=== PATIENT | male | born 1995 | race Caucasian/White ===

== ENCOUNTER 2022-11-04 16:46 | Inpatient (IN) | payer OTHER ==
[~2022-11-04] VITALS: Ht 188 cm; Wt 95.5 kg
[2022-11-04] MEDS ORDERED: SODIUM CHLORIDE 0.9% 1,000 ML IV ONE (17:30)
[2022-11-04 17:57] LABS: BASOPHILS % (AUTO) 0.2 % (0.0-2.0); EOSINOPHILS % (AUTO) 0.5 % (1.0-6.0); HEMATOCRIT 46.8 % (41-53); HEMOGLOBIN 15.7 g/dL (13.5-17.5); LYMPHOCYTES % (AUTO) 17.2 % (22.0-44.0); MEAN CORPUSCULAR HEMOGLOBIN 29.6 pg (26.0-34.0); MEAN CORPUSCULAR HGB CONC 33.6 G/dL (31.0-37.0); MEAN CORPUSCULAR VOLUME 88 fL (80-100); MONOCYTES # (AUTO) 0.5 K/uL (0.1-1.0); NEUTROPHILS # (AUTO) 4.2 K/uL (1.8-7.7); NEUTROPHILS % (AUTO) 73.1 % (40.0-70.0); PLATELET COUNT (AUTO) 273 K/uL (150-450); RED CELL DISTRIBUTION WIDTH 12.9 % (11.5-14.5)
[2022-11-04 18:04] LABS: ANION GAP 7 mmol/L (8-16); CALCIUM, TOTAL 9.3 mg/dL (8.8-10.5); CARBON DIOXIDE 27 mmol/L (22-29); CHLORIDE 105 mmol/L (98-107); CREATININE 0.94 mg/dL (0.60-1.30); GLOMERULAR FILTR. RATE CALC > 60 mL/min (>60); GLUCOSE,RANDOM 119 mg/dL (70-110); POTASSIUM 4.1 mmol/L (3.5-5.1); SODIUM SERUM 139 mmol/L (136-145)
[2022-11-04] MEDS ORDERED: METOCLOPRAMIDE HCL 5 MG/ML 2 ML VIAL IVP ONE (18:30)
[2022-11-04] MEDS ORDERED: MAGNESIUM HYDROXIDE SUSPENSION 30 ML UDCUP PO PRN (21:15)
[2022-11-04] MEDS ORDERED: HydrOXYzine PAMOATE 50 MG CAPSULE PO PRN ×2 (21:15)
[2022-11-04] MEDS ORDERED: DICYCLOMINE HCL 10 MG CAPSULE PO PRN (21:15)
[2022-11-04] MEDS ORDERED: PROMETHAZINE HCL 25 MG TABLET PO PRN (21:15)
[2022-11-04] MEDS ORDERED: LOPERAMIDE HCL 2 MG/15 ML SUSPENSION UDCUP PO PRN (21:15)
[2022-11-04] MEDS ORDERED: BACLOFEN 10 MG TABLET PO PRN (21:15)
[2022-11-04] MEDS ORDERED: TraZODone HCL 50 MG TABLET PO PRN (21:15)
[2022-11-04] MEDS ORDERED: IBUPROFEN 600 MG TABLET PO PRN (21:15)
[2022-11-04] MEDS ORDERED: BISACODYL 10 MG RECTAL RECTAL SUPPOSITORY PR PRN (21:15)
[2022-11-04] MEDS ORDERED: LORazepam 1 MG TABLET PO PRN (21:15)
[2022-11-04] MEDS ORDERED: CloNIDine HCL 0.1 MG TABLET PO PRN ×2 (21:15)
[2022-11-04] MEDS ORDERED: ACETAMINOPHEN 325 MG TABLET PO PRN ×2 (21:15)
[2022-11-04] MEDS ORDERED: ALBUTEROL SULFATE 2.5 MG/0.5 ML NEB SOLUTION NEB PRN (21:15)
[2022-11-04] MEDS ORDERED: MAG HYDROX/AL HYDROX/SIMETH ES 30 ML SUSPENSION UDCUP PO PRN ×2 (21:15)
[2022-11-04] MEDS ORDERED: IPRATROPIUM BROMIDE 0.5 MG/2.5 ML NEB SOLUTION NEB PRN (21:15)
[2022-11-04] MEDS: CloNIDine HCL 0.1 MG TABLET PO SCH (21:52)
[2022-11-04] MEDS: SODIUM CHLORIDE 0.45% 1,000 ML IV SCH (21:52)
[2022-11-04] MEDS: HEPARIN SODIUM,PORCINE 5,000 UNITS/ML VIAL SQ SCH (23:46)
[2022-11-05] MEDS: ZOLPIDEM TARTRATE 5 MG TABLET PO PRN ×2 (04:33→20:08)
[2022-11-05] MEDS: ONDANSETRON HCL 4 MG/2 ML VIAL IVP PRN ×2 (04:40→17:49)
[2022-11-05] MEDS: CloNIDine HCL 0.1 MG TABLET PO SCH ×4 (06:06→22:00)
[2022-11-05 08:05] VITALS: BP 123/68
[2022-11-05] MEDS: PANTOPRAZOLE SODIUM 40 MG/VIAL IVP SCH (08:36)
[2022-11-05] MEDS: SODIUM CHLORIDE 0.45% 1,000 ML IV SCH ×2 (08:36→23:22)
[2022-11-05] MEDS: HEPARIN SODIUM,PORCINE 5,000 UNITS/ML VIAL SQ SCH ×2 (08:36→16:53)
[2022-11-05 09:01] LABS: APPEARANCE,URINE CLEAR (CLEAR); BILIRUBIN,URINE NEGATIVE (NEGATIVE); GLUCOSE, URINE (UA) NEGATIVE (NEGATIVE); KETONES,URINE NEGATIVE (NEGATIVE); LEUKOCYTE ESTERASE ,URINE NEGATIVE (NEGATIVE); NITRATE,URINE NEGATIVE (NEGATIVE); OCCULT BLOOD,URINE NEGATIVE (NEGATIVE); PROTEIN,URINE NEGATIVE (NEGATIVE); UROBILINOGEN,URINE <=1.0 mg/dL (<=1.0)
[2022-11-05 09:09] LABS: AMPHET/METH SCREEN,URINE POSITIVE (NEGATIVE); BARBITURATE SCREEN, URINE NEGATIVE (NEGATIVE); BENZODIAZEPINES SCREEN,URINE NEGATIVE (NEGATIVE); CANNABINOID SCREEN,URINE NEGATIVE (NEGATIVE); COCAINE SCREEN,URINE NEGATIVE (NEGATIVE); METHADONE SCREEN, URINE NEGATIVE (NEGATIVE); PHENCYCLIDINE SCREEN,URINE POSITIVE (NEGATIVE)
[2022-11-05 09:10] LABS: OPIATE SCREEN,URINE NEGATIVE (NEGATIVE)
[2022-11-05] MEDS: IBUPROFEN 600 MG TABLET PO PRN (11:59)
[2022-11-05 15:39] VITALS: BP 132/77
[2022-11-05 19:15] VITALS: BP 132/60
[2022-11-06] MEDS: IBUPROFEN 600 MG TABLET PO PRN (00:56)
[2022-11-06 04:05] VITALS: BP 114/60
[2022-11-06] MEDS: CloNIDine HCL 0.1 MG TABLET PO SCH (06:00)
[2022-11-06 07:29] VITALS: BP 119/67
[2022-11-06] MEDS: HEPARIN SODIUM,PORCINE 5,000 UNITS/ML VIAL SQ SCH ×2 (08:00)
[2022-11-06] MEDS: PANTOPRAZOLE SODIUM 40 MG/VIAL IVP SCH (08:50)
== END 2022-11-06 14:13 | DRG 897 ==
LOC: EMS 16:50 → AHU 18:31 → 6S 11-05 06:38 → 6N 11-05 10:55
PROVIDERS: ADMIT Hospitalist; ATTEND Hospitalist
DX: F11.10 Opioid abuse, uncomplicated (principal); F17.200 Nicotine dependence, unspecified, uncomplicated; F10.90 Alcohol use, unspecified, uncomplicated
CPT/HCPCS: 80048; 80307; 81003; 85025; 99285; C9113; G0378; G0480; J1644; J2405; J2765; J7030

== ENCOUNTER 2024-03-28 13:50 | Inpatient (IN) | payer OTHER ==
[~2024-03-28] VITALS: Ht 188 cm; Wt 95.0 kg
[2024-03-28 14:40] LABS: BASOPHILS % (AUTO) 0.4 % (0.0-2.0); EOSINOPHILS % (AUTO) 1.1 % (1.0-6.0); HEMATOCRIT 47.7 % (41-53); HEMOGLOBIN 15.6 g/dL (13.5-17.5); LYMPHOCYTES # (AUTO) 1.3 K/uL (1.0-4.8); LYMPHOCYTES % (AUTO) 15.7 % (22.0-44.0); MEAN CORPUSCULAR HEMOGLOBIN 29.1 pg (26.0-34.0); MEAN CORPUSCULAR HGB CONC 32.7 G/dL (31.0-37.0); MEAN CORPUSCULAR VOLUME 89 fL (80-100); MONOCYTES # (AUTO) 0.9 K/uL (0.1-1.0); MONOCYTES % (AUTO) 10.8 % (2.0-9.0); NEUTROPHILS # (AUTO) 6.2 K/uL (1.8-7.7); PLATELET COUNT (AUTO) 208 K/uL (150-450); RED BLOOD CELL COUNT(AUTO) 5.37 MIL/uL (4.50-5.90); WHITE BLOOD COUNT (AUTO) 8.6 K/uL (4.5-11.0)
[2024-03-28 14:44] LABS: ANION GAP 4 mmol/L (8-16); CALCIUM, TOTAL 8.2 mg/dL (8.8-10.5); CARBON DIOXIDE 33 mmol/L (22-29); CHLORIDE 103 mmol/L (98-107); CREATININE 0.87 mg/dL (0.60-1.30); GLOMERULAR FILTR. RATE CALC > 60 mL/min (>60); GLUCOSE,RANDOM 84 mg/dL (70-110); POTASSIUM 4.8 mmol/L (3.5-5.1); SODIUM SERUM 140 mmol/L (136-145); UREA NITROGEN, BLOOD 17 mg/dL (7-18)
[2024-03-28 14:53] LABS: LACTIC ACID 1.1 mmol/L (0.4-2.0)
[2024-03-28] MEDS: PIPERACILLIN/TAZO 3.375 GM/D5W 50 ML IV ONE (14:54)
[2024-03-28 14:58] LABS: C-REACTIVE PROTEIN QUANT 1.39 mg/dL (0.00-0.30)
[2024-03-28] MEDS: TraMADol HCL 50 MG TABLET PO ONE (14:59)
[2024-03-28] MEDS ORDERED: ONDANSETRON HCL 4 MG/2 ML VIAL IVP PRN (16:00)
[2024-03-28] MEDS: HEPARIN SODIUM,PORCINE 5,000 UNITS/ML VIAL SQ SCH (16:00)
[2024-03-28] MEDS: VANCOMYCIN 1.5 GM/WATER(PEG) 300 ML IV ONE (16:31)
[2024-03-28] MEDS ORDERED: KETOROLAC TROMETHAMINE 15 MG/ML VIAL IVP SCH (18:00)
[2024-03-28] MEDS ORDERED: SODIUM CHLORIDE 0.9% 500 ML IV ONE (18:35)
[2024-03-28] MEDS: CLINDAMYCIN 300 MG/D5% WATER 50 ML IV SCH (18:42)
[2024-03-28] MEDS: KETOROLAC TROMETHAMINE 15 MG/ML VIAL IVP PRN (18:43)
[2024-03-28 19:39] VITALS: BP 113/69; PULSE 70; RESP 19; TEMP 98.9; O2SAT 99
[2024-03-28] MEDS: PIPERACILLIN/TAZO 3.375 GM/D5W 50 ML IV SCH (22:13)
[2024-03-29] MEDS ORDERED: VANCOMYCIN 1.25 GM/WATER(PEG) 250 ML IV SCH
[2024-03-29 05:26] VITALS: BP 129/74; PULSE 63; RESP 18; TEMP 97.8; O2SAT 97
[2024-03-29 07:10] LABS: BASOPHILS % (AUTO) 0.5 % (0.0-2.0); EOSINOPHILS % (AUTO) 1.2 % (1.0-6.0); HEMATOCRIT 43.1 % (41-53); HEMOGLOBIN 14.5 g/dL (13.5-17.5); LYMPHOCYTES # (AUTO) 0.8 K/uL (1.0-4.8); LYMPHOCYTES % (AUTO) 8.4 % (22.0-44.0); MEAN CORPUSCULAR HEMOGLOBIN 29.5 pg (26.0-34.0); MEAN CORPUSCULAR HGB CONC 33.7 G/dL (31.0-37.0); MEAN CORPUSCULAR VOLUME 88 fL (80-100); MONOCYTES % (AUTO) 10.3 % (2.0-9.0); NEUTROPHILS # (AUTO) 7.4 K/uL (1.8-7.7); NEUTROPHILS % (AUTO) 79.6 % (40.0-70.0); PLATELET COUNT (AUTO) 188 K/uL (150-450); RED BLOOD CELL COUNT(AUTO) 4.92 MIL/uL (4.50-5.90); RED CELL DISTRIBUTION WIDTH 12.3 % (11.5-14.5); WHITE BLOOD COUNT (AUTO) 9.4 K/uL (4.5-11.0)
[2024-03-29 07:25] VITALS: BP 105/61; PULSE 69; RESP 18; TEMP 98.6; O2SAT 96
[2024-03-29 07:36] LABS: ANION GAP 7 mmol/L (8-16); CARBON DIOXIDE 26 mmol/L (22-29); CHLORIDE 102 mmol/L (98-107); CREATININE 0.91 mg/dL (0.60-1.30); GLOMERULAR FILTR. RATE CALC > 60 mL/min (>60); GLUCOSE,RANDOM 94 mg/dL (70-110); SODIUM SERUM 135 mmol/L (136-145); UREA NITROGEN, BLOOD 17 mg/dL (7-18)
[2024-03-29 08:10] LABS: CALCIUM, TOTAL 8.2 mg/dL (8.8-10.5)
[2024-03-29] MEDS: LINEZOLID 600 MG/ISO-OSM 300 ML IV SCH (08:29)
[2024-03-29 19:25] VITALS: BP 123/53; PULSE 77; RESP 20; TEMP 99.1; O2SAT 97
[2024-03-30 05:28] VITALS: BP 105/58; PULSE 70; RESP 20; TEMP 98.6; O2SAT 94
[2024-03-30 06:43] LABS: ANION GAP 6 mmol/L (8-16); CALCIUM, TOTAL 8.1 mg/dL (8.8-10.5); CARBON DIOXIDE 29 mmol/L (22-29); CHLORIDE 102 mmol/L (98-107); CREATININE 0.83 mg/dL (0.60-1.30); GLOMERULAR FILTR. RATE CALC > 60 mL/min (>60); GLUCOSE,RANDOM 94 mg/dL (70-110); POTASSIUM 4.4 mmol/L (3.5-5.1); SODIUM SERUM 137 mmol/L (136-145); UREA NITROGEN, BLOOD 15 mg/dL (7-18)
[2024-03-30 07:37] VITALS: BP 106/54; PULSE 68; RESP 18; TEMP 98.5; O2SAT 97
[2024-03-30] MEDS: ACETAMINOPHEN 325 MG TABLET PO PRN (08:00)
[2024-03-30] MEDS ORDERED: ACETAMINOPHEN 500 MG TABLET PO PRN (18:15)
[2024-03-30] MEDS: ACETAMINOPHEN 500 MG TABLET PO SCH (18:34)
[2024-03-30 19:33] VITALS: BP 141/62; PULSE 67; RESP 18; TEMP 98.5; O2SAT 98
[2024-03-30] MEDS: GABAPENTIN 100 MG CAPSULE PO SCH (20:08)
[2024-03-30] MEDS ORDERED: MELATONIN 3 MG TABLET PO PRN (22:45)
[2024-03-31 07:59] VITALS: BP 177/98; PULSE 66; RESP 19; TEMP 98.2; O2SAT 99
[2024-03-31 09:40] LABS: BASOPHILS % (AUTO) 0.4 % (0.0-2.0); EOSINOPHILS % (AUTO) 0.9 % (1.0-6.0); HEMATOCRIT 46.6 % (41-53); HEMOGLOBIN 15.6 g/dL (13.5-17.5); LYMPHOCYTES % (AUTO) 11.6 % (22.0-44.0); MEAN CORPUSCULAR HEMOGLOBIN 29.6 pg (26.0-34.0); MEAN CORPUSCULAR HGB CONC 33.5 G/dL (31.0-37.0); MEAN CORPUSCULAR VOLUME 88 fL (80-100); MONOCYTES # (AUTO) 0.8 K/uL (0.1-1.0); MONOCYTES % (AUTO) 9.2 % (2.0-9.0); NEUTROPHILS % (AUTO) 77.9 % (40.0-70.0); PLATELET COUNT (AUTO) 251 K/uL (150-450); RED BLOOD CELL COUNT(AUTO) 5.27 MIL/uL (4.50-5.90); RED CELL DISTRIBUTION WIDTH 12.6 % (11.5-14.5)
[2024-03-31 10:13] LABS: ANION GAP 5 mmol/L (8-16); CALCIUM, TOTAL 8.9 mg/dL (8.8-10.5); CARBON DIOXIDE 32 mmol/L (22-29); CHLORIDE 103 mmol/L (98-107); GLOMERULAR FILTR. RATE CALC > 60 mL/min (>60); GLUCOSE,RANDOM 115 mg/dL (70-110); POTASSIUM 4.7 mmol/L (3.5-5.1); SODIUM SERUM 140 mmol/L (136-145); UREA NITROGEN, BLOOD 11 mg/dL (7-18)
[2024-03-31 11:13] VITALS: BP 167/89; PULSE 69; RESP 18; TEMP 99.3; O2SAT 98
[2024-03-31] MEDS ORDERED: GADOTERATE MEGLUMINE 10 MMOL/20 ML VIAL IVP ONE (15:10)
== END 2024-03-31 20:02 | disposition left against medical advice (07) | DRG 603 ==
LOC: EMS 13:50 → EDH 15:51 → 6S 17:05
PROVIDERS: ADMIT Internal Medicine; ATTEND Internal Medicine
DX: L03.116 Cellulitis of left lower limb (principal); M00.9 Pyogenic arthritis, unspecified; M71.162 Other infective bursitis, left knee; Z53.29 Procedure and treatment not carried out because of patient's decision for other reasons; Z88.1 Allergy status to other antibiotic agents
CPT/HCPCS: 72170; 80048; 83605; 83735; 84145; 85025; 85651; 86140; 87040; 87070; 87186; 87205; 99285; J1644; J1885; J2020; J2543; J3490; J7040